=== PATIENT | female | born 1965 | race Caucasian/White ===

== ENCOUNTER 2019-12-22 11:00 | Outpatient (CLI) | payer OTHER ==
--- NOTE | 2019-12-22 12:06 | CT ---
CT CHEST WITH IV CONTRAST: HISTORY: Abnormal chest radiographs of 12/07/2019. Left-sided lung mass FINDINGS: There is a left-sided suprahilar upper lobe lung mass extending into the hilum and prevascular medias tinum measuring 5.3 x 7.3 x 2.8 cm. There is 3 x 6 mm protrusion into the superior wall of the left main bronchus. Additional mediastinal lymphadenopathy is seen measuring up to 2.2 cm in the right par atracheal region. There is right supraclavicular lymphadenopathy measuring 4.2 x 3.2 cm. Emphysematous changes are present in the lung claros. There is mild atelectatic change in the right l colin base. No pleural or pericardial effusions are seen. Upper abdominal tomograms are unremarkable. No osteolytic or osteoblastic lesions are seen. IMPRESSION: Findings are suspicious for left upper lobe lung malignancy and metastatic disease to the left hilar, mediastinal and right supraclavicular lymph nodes. RECOMMENDATION: Further evaluation with bronchoscopy and PET scan is recommended
[2019-12-22] MEDS ORDERED: Iopamidol 370 76% 100 ML VIAL ONE (14:59)
== END 2019-12-22 11:01 | disposition home or self-care (01) ==
LOC: CT 11:00
PROVIDERS: ATTEND Allergy & Immunology
DX: C34.90 Malignant neoplasm of unspecified part of unspecified bronchus or lung (principal); C77.9 Secondary and unspecified malignant neoplasm of lymph node, unspecified
CPT/HCPCS: 71260; Q9967